=== PATIENT | male | born 1965 | race Caucasian/White ===

== ENCOUNTER 2019-07-11 07:08 | Inpatient (IN) | payer MEDICAID ==
[~2019-07-11] VITALS: Ht 177.8 cm; Wt 118.9 kg
[2019-07-11] MEDS ORDERED: NO HOME MEDS (07:37)
[2019-07-11] MEDS ORDERED: morphine 4 MG/ML inj SYRINge IV ONE (07:45)
[2019-07-11 07:51] LABS: EOSINOPHILS % (AUTO) 0 % (0-6); HEMATOCRIT 41.4 % (42.0-52.0); MONOCYTES # (AUTO) 2.4 X10'3 (0-0.9)
[2019-07-11 07:53] LABS: BASOPHILS # (AUTO) 0.1 X10'3 (0-0.2); BASOPHILS % (AUTO) 0.3 % (0-1); HEMOGLOBIN 14.4 g/dl (14.0-17.9); LYMPHOCYTES % (AUTO) 4.7 % (21-51); MEAN CORPUSCULAR HEMOGLOBIN 30.4 PG (27.0-31.0); MEAN CORPUSCULAR HGB CONC 34.6 g/dL (33.0-36.5); MEAN CORPUSCULAR VOLUME 87.8 FL (78-98); MEAN PLATELET VOLUME 8.2 FL (7.4-10.4); MONOCYTES % (AUTO) 11.7 % (2-12); NEUTROPHILS # (AUTO) 17.4 X10'3 (1.8-7.7); NEUTROPHILS % (AUTO) 83.3 % (42-75); PLATELET COUNT 221 X10'3 (140-440); RED BLOOD COUNT 4.72 X10'6 (4.70-6.10); RED CELL DISTRIBUTION WIDTH 13.5 % (11.5-14.5); WHITE BLOOD COUNT 20.8 X10'3 (4.5-11.0)
[2019-07-11 08:03] LABS: ALANINE AMINOTRANSFERASE 29 U/L (12-78); ALBUMIN 3.1 G/DL (3.4-5.0); ALBUMIN/GLOBULIN RATIO 0.7 (1.1-1.5); ALKALINE PHOSPHATASE 81 IU/L (46-116); ANION GAP 9 (8-16); ASPARTATE AMINO TRANSFERASE 15 U/L (10-37); BILIRUBIN,TOTAL 0.5 MG/DL (0.1-1.0); BLOOD UREA NITROGEN 15 MG/DL (7-18); BUN/CREATININE RATIO 16.1 (5.4-32.0); CALCIUM 8.8 MG/DL (8.5-10.1); CHLORIDE 100 MMOL/L (99-107); CREATININE 0.93 MG/DL (0.60-1.10); GLUCOSE 155 MG/DL (70-104); SODIUM 133 MMOL/L (135-145); TOTAL CARBON DIOXIDE 24.3 MMOL/L (24-32); TOTAL PROTEIN 7.4 G/DL (6.4-8.2); eGFR 85 ML/MIN
[2019-07-11 08:07] LABS: PARTIAL THROMBOPLASTIN TIME 32 SECONDS (22-32)
[2019-07-11 08:19] LABS: TOTAL CELLS COUNTED 100
[2019-07-11 08:20] LABS: PLATELET ESTIMATE NORMAL; TOXIC GRANULATION 1+; TOXIC VACUOLATION 1+
[2019-07-11] MEDS ORDERED: iohexol 350 MG/ML 50ML vial IV ONE (08:21)
[2019-07-11] MEDS ORDERED: iohexol 350MG/ML 100ml bottle IV ONE (08:21)
[2019-07-11 08:40] LABS: TROPONIN I < 0.04 NG/ML (0.0-0.05)
[2019-07-11] MEDS ORDERED: HYDROmorphone 1 mg/ml syringe IV ONE ×2 (08:40→12:30)
[2019-07-11 10:08] LABS: CLARITY,URINE CLEAR (Clear); COLOR,URINE YELLOW (Yellow); GLUCOSE, URINE 100 mg/dl (Neg); KETONES,URINE NEGATIVE (Neg); LEUKOCYTE ESTERASE ,URINE NEGATIVE (Neg); NITRITES, URINE NEGATIVE (Neg); OCCULT BLOOD,URINE MODERATE (Neg); PROTEIN,URINE 100 mg/dl (Neg)
[2019-07-11 10:09] LABS: UA COLLECTION TYPE URINAL
[2019-07-11 10:19] LABS: URINE AMPHETAMINE SCREEN POSITIVE (Neg); URINE BARBITUATE SCREEN NEGATIVE (Neg); URINE BENZODIAZEPINES SCREEN NEGATIVE (Neg); URINE CANNABINOID SCREEN POSITIVE (Neg); URINE COCAINE SCREEN NEGATIVE (Neg); URINE METHADONE SCREEN NEGATIVE (Neg); URINE OPIATE SCREEN POSITIVE (Neg); URINE PHENCYCLIDINE SCREEN NEGATIVE (Neg)
[2019-07-11 10:20] LABS: BACTERIA,URINE FEW /HPF (Neg); HYALINE CASTS 0-3 /LPF (NEGATIVE); MUCUS STRANDS MODERATE /LPF (Neg); SQUAMOUS EPITHELIAL CELL,UR FEW /LPF (FEW); WBC,URINE 0-4 /HPF (0-4)
[2019-07-11] MEDS ORDERED: piperacillin/tazo 3.375gm/50ml 50 ML IV ONE (10:50)
[2019-07-11] MEDS ORDERED: vancomycin/NS 1 GM ADD-VANTAGE 250 ML IV ONE (10:50)
--- NOTE | 2019-07-11 11:12 | NUR ---
ICE CHIPS GIVEN
--- NOTE | 2019-07-11 11:53 | NUR ---
TO MRI, VANCO/IV SALINE LOCKED
--- NOTE | 2019-07-11 12:18 | NUR ---
PT WOULD NOT STAY STILL FOR MRI, R/T PAIN, MD AWARE.
--- NOTE | 2019-07-11 13:03 | NUR ---
CALLED MRI TO CHECK ON WHEN THEY WILL BE READY AND MADE THEM AWARE I HAVE THE PT'S PAIN MEDICATION. LEFT A MESSAGE AND WAITING ON THEIR RESPONSE.
[2019-07-11] MEDS ORDERED: normal saline 1000ml 1,000 ML IV ONE (13:15)
[2019-07-11] MEDS ORDERED: ketamine 10mg/ml 20ml inj IV ONE (13:25)
[2019-07-11] MEDS ORDERED: etomidate 2mg/ml inj. ONE ×2 (14:00→17:00)
--- NOTE | 2019-07-11 14:10 | NUR ---
attempted to call mri again, paged per reza again, no response
--- NOTE | 2019-07-11 15:28 | NUR ---
mri responded, pt to be up for mri soon
[2019-07-11] MEDS ORDERED: potassium Cl 20 mEq SR tablet PO PRN ×2 (15:30)
[2019-07-11] MEDS ORDERED: magnesium 2GM in 50ml NS 50 ML IV PRN (15:30)
[2019-07-11] MEDS ORDERED: magnesium Cl slow-release 64mg tablet PO PRN (15:30)
[2019-07-11] MEDS: normal saline 1000ml 1,000 ML IV SCH (15:30)
[2019-07-11] MEDS ORDERED: acetaminophen 325mg tablet PO PRN ×2 (15:30)
[2019-07-11] MEDS ORDERED: mag hydrox/Alum hydrox/simeth 30ml oral suspension PO PRN (15:30)
[2019-07-11] MEDS ORDERED: magnesium hydroxide 30ml (MOM) UD suspension PO PRN (15:30)
[2019-07-11] MEDS ORDERED: HYDROcodone/acetaminophen 10/325mg tab PO PRN (15:30)
[2019-07-11] MEDS ORDERED: potassium CL 10mEq/100ml bag 100 ML IV PRN ×2 (15:30)
[2019-07-11] MEDS ORDERED: HYDROcodone/acetaminophen 5mg/325mg tablet PO PRN (15:30)
[2019-07-11] MEDS ORDERED: ondansetron/PF 4mg/2ml inj IV PRN (15:30)
[2019-07-11] MEDS ORDERED: magnesium 4gm in 100ml NS 100 ML IV PRN (15:30)
[2019-07-11] MEDS ORDERED: morphine 2 MG/ML inj. syringe IV PRN ×2 (15:30)
[2019-07-11 15:49] LABS: CREATINE KINASE 139 U/L (39-308)
[2019-07-11] MEDS ORDERED: metoprolol tartrate 50mg tablet PO ONE (15:50)
--- NOTE | 2019-07-11 16:07 | NUR ---
TO MRI WITH DAVID Diop
[2019-07-11] MEDS ORDERED: rocuronium 10mg/ml inj IV ONE ×2 (17:00→20:00)
[2019-07-11] MEDS ORDERED: 0.9 % SODIUM CHLORIDE 10 ML VIAL ONE (17:00)
[2019-07-11] MEDS ORDERED: atropine 0.1mg/ml 10ml syringe ONE (17:00)
[2019-07-11] MEDS ORDERED: NORepinephrine bitartrate 8 MG in NS 250 ML BAG (32 mcg/ml) IV ONE (17:00)
--- NOTE | 2019-07-11 17:14 | NUR ---
RECEIVED REPORT FROM ER NURSE LONDON PALMER, BUT PT IS IN MRI AND THEY WILL BRING HIM UP WHEN THEY ARE FINISHED
--- NOTE | 2019-07-11 17:41 | NUR ---
PT CAME TO FLOOR. HE IS IN PAIN, BUT JUST GOT KETAMINE
[2019-07-11 17:42] VITALS: BP 156/100
--- NOTE | 2019-07-11 17:49 | NUR ---
PT CURRENTLY GETTING ECHO
[2019-07-11 20:00] VITALS: BP 151/92
[2019-07-11] MEDS: heparin, porcine 5000 units/ml vial SQ SCH (20:00)
[2019-07-11] MEDS ORDERED: epiNEPHrine 0.1mg/ml 10ml syringe ONE (20:00)
--- NOTE | 2019-07-11 20:45 | NUR ---
Patient had unwitnessed fall in own room. No injuries found. Patient lifted back to bed with Roland. Vitals were 97.8T, 110HR, 140/90BP. Dr. Arias notified
[2019-07-11] MEDS ORDERED: temazepam 15mg capsule PO PRN (21:00)
[2019-07-11] MEDS: metoprolol tartrate 50mg tablet PO SCH (22:05)
[2019-07-12] VITALS (28 sets, daily range): BP systolic 60–133; BP diastolic 29–80
[2019-07-12 00:05] LABS: ABG BASE EXCESS -1.1 mmol/L (-2.0-3.0); ABG HCO3 24.2 mmol/L (22.0-26.0); ABG OXYGEN SATURATION 92.5 % (95-98); ABG PCO2 (T) 47.5 mmHg (35.0-45.0); ABG PH (T) 7.336 (7.350-7.450); ABG PO2 (T) 78.3 mmHg (83-108); FCOHb 0.5 % (0.5-1.5); FLOW 2 L/min; FMetHb 0.2 % (0.3-1.12); FO2Hb 91.9 % (94-100); PATIENT TEMPERATURE 39.5; RESPIRATORY RATE (OBSERVED) 20 b/min; TOTAL HEMOGLOBIN 15.5 G/dl (14.0-17.9)
--- NOTE | 2019-07-12 00:30 | NUR ---
Patient was a Rapid Response and transferred to room 2013. Charge Nurse was transferring patient to bed when patient has a witnessed Respiratory Arrest. Code Blue Called, Patient intubated at 0040. See code Blue notes.
[2019-07-12 00:31] LABS: BASOPHILS # (AUTO) 0.1 X10'3 (0-0.2); BASOPHILS % (AUTO) 0.2 % (0-1); EOSINOPHILS % (AUTO) 0 % (0-6); HEMOGLOBIN 15.4 g/dl (14.0-17.9); LYMPHOCYTES # (AUTO) 0.9 X10'3 (1.1-4.8); LYMPHOCYTES % (AUTO) 3.5 % (21-51); MEAN CORPUSCULAR HEMOGLOBIN 30.1 PG (27.0-31.0); MEAN CORPUSCULAR HGB CONC 34.2 g/dL (33.0-36.5); MEAN PLATELET VOLUME 8.1 FL (7.4-10.4); MONOCYTES # (AUTO) 1.9 X10'3 (0-0.9); MONOCYTES % (AUTO) 7.5 % (2-12); NEUTROPHILS # (AUTO) 22.2 X10'3 (1.8-7.7); NEUTROPHILS % (AUTO) 88.8 % (42-75); PLATELET COUNT 237 X10'3 (140-440); RED BLOOD COUNT 5.11 X10'6 (4.70-6.10); RED CELL DISTRIBUTION WIDTH 13.7 % (11.5-14.5)
[2019-07-12 00:37] LABS: ALANINE AMINOTRANSFERASE 28 U/L (12-78); ALBUMIN/GLOBULIN RATIO 0.6 (1.1-1.5); ALKALINE PHOSPHATASE 89 IU/L (46-116); ANION GAP 12 (8-16); ASPARTATE AMINO TRANSFERASE 17 U/L (10-37); BILIRUBIN,TOTAL 0.7 MG/DL (0.1-1.0); BLOOD UREA NITROGEN 21 MG/DL (7-18); BUN/CREATININE RATIO 18.4 (5.4-32.0); CALCIUM 9.1 MG/DL (8.5-10.1); CHLORIDE 97 MMOL/L (99-107); CREATININE 1.14 MG/DL (0.60-1.10); GLUCOSE 139 MG/DL (70-104); POTASSIUM 4.3 MMOL/L (3.5-5.1); SODIUM 133 MMOL/L (135-145); TOTAL CARBON DIOXIDE 23.8 MMOL/L (24-32); eGFR 67 ML/MIN
[2019-07-12] MEDS ORDERED: hydrocortisone sod succ/PF 100mg/2ml inj. IV ONE (01:00)
[2019-07-12] MEDS ORDERED: acetaminophen 325mg/10.15ml oral unit dose solution PO PRN (01:20)
[2019-07-12 01:21] LABS: ABG BASE EXCESS -7.8 mmol/L (-2.0-3.0); ABG HCO3 21.3 mmol/L (22.0-26.0); ABG OXYGEN SATURATION 94.6 % (95-98); ABG PCO2 (T) 67.9 mmHg (35.0-45.0); ABG PH (T) 7.133 (7.350-7.450); ALLEN'S TEST Positive; FCOHb 0.2 % (0.5-1.5); FMetHb 0.3 % (0.3-1.12); FO2Hb 94.1 % (94-100); MINUTE VOLUME 9 L/min; PATIENT TEMPERATURE 40.3; PEEP 5 cm H2O; RESPIRATORY RATE 18 b/min; RESPIRATORY RATE (OBSERVED) 18 b/min; TIDAL VOLUME 500 mL; TOTAL HEMOGLOBIN 13.9 G/dl (14.0-17.9)
--- NOTE | 2019-07-12 01:30 | NUR ---
Dr Post at bedside to place central line and Artline. Will continue to monitor patient.
[2019-07-12] MEDS ORDERED: DOBUTamine-DoBUTrex 500mg/D5W 250 ML IV ONE (01:47)
[2019-07-12 01:55] LABS: PLATELET ESTIMATE NORMAL; TOTAL CELLS COUNTED 100
[2019-07-12] MEDS: normal saline 1000ml 1,000 ML IV SCH ×2 (02:10→12:15)
[2019-07-12] MEDS: DOBUTamine-DoBUTrex 500mg/D5W 250 ML IV SCH (02:10)
[2019-07-12] MEDS: hydrocortisone sod succ/PF 100mg/2ml inj. IV SCH ×4 (02:12→20:07)
[2019-07-12 02:15] LABS: OXYGEN SATURATION (MIXED VEN) 56.1 % (60-80)
[2019-07-12 02:15] LABS: ABG BASE EXCESS -2.5 mmol/L (-2.0-3.0); ABG HCO3 22.8 mmol/L (22.0-26.0); ABG PCO2 (T) 46.6 mmHg (35.0-45.0); ABG PO2 (T) 102.5 mmHg (83-108); FCOHb 0.1 % (0.5-1.5); FMetHb 0.3 % (0.3-1.12); FO2Hb 95.6 % (94-100); MINUTE VOLUME 13 L/min; PATIENT TEMPERATURE 39.7; PEEP 5 cm H2O; RESPIRATORY RATE 24 b/min; RESPIRATORY RATE (OBSERVED) 24 b/min; TIDAL VOLUME 500 mL; TOTAL HEMOGLOBIN 13.8 G/dl (14.0-17.9)
[2019-07-12] MEDS: midazolam 100mg in NS 100ml 100 ML IV PRN (04:25)
[2019-07-12] MEDS: FENTANYL-0.9 % NACL/PF 100 ML IV PRN ×2 (04:26→17:55)
[2019-07-12] MEDS: NORepinephrine 8mg/ 250ml NS 250 ML IV PRN ×3 (04:36→17:23)
[2019-07-12] MEDS: CefTRIAXone 2gm/D5W 50ml 50 ML IV SCH (07:39)
[2019-07-12] MEDS: K and/or MAG REPLACEMENT MC SCH (08:00)
[2019-07-12] MEDS: lisinopril 10 MG tablet PO SCH (08:00)
[2019-07-12] MEDS: metoprolol tartrate 50mg tablet PO SCH ×2 (08:00→20:00)
[2019-07-12] MEDS: nicotine 14mg patch - 24hr TD SCH (08:11)
[2019-07-12] MEDS: piperacillin/tazo 3.375gm/50ml 50 ML IV SCH ×3 (08:12→23:51)
[2019-07-12] MEDS: heparin, porcine 5000 units/ml vial SQ SCH ×2 (08:12→20:09)
--- NOTE | 2019-07-12 10:02 | NUR ---
Initial: Pt admitted with sepsis and reports of back pain. Pt s/p code blue early this morning now in CICU and intubated. TF recommendations below for if prolonged intubation and to receive nutrition support. Pt with positive tox screen for opioids, cannabinoids and amphetamines and with a hx COPD. Pt currently with a low Pablo of 12, documentation indicates no edema or wounds present. Will continue to follow. Recommendations: 1) If prolonged intubation and to receive nutrition support, recommend continuous TF of Vital High Protein with goal rate of 75 mL/hr 2) If above, prealbumin q /; daily wts 3) Diet advancement to heart healthy as medically indicated following extubation Addendum: 07/12/19 at [address] Amended: Links added.
[2019-07-12] MEDS ORDERED: insulin Lispro (HumaLOG) vial - multi-dose SQ PRN (15:15)
[2019-07-12] MEDS ORDERED: VANCOMYCIN LEVEL IV ONE (19:30)
[2019-07-12] MEDS: lactobacillus rhamnosus 10,000 MMU CELLS/CAPSULE PO SCH (20:07)
[2019-07-12] MEDS ORDERED: ipratropium/albuterol 3ml nebule ONE (20:57)
[2019-07-12] MEDS: ipratropium/albuterol 3ml nebule NEB PRN (20:59)
[2019-07-12] MEDS: insulin glargine (Lantus) pen - multi-dose SQ SCH (22:39)
[2019-07-12 23:25] LABS: ABG BASE EXCESS -2.9 mmol/L (-2.0-3.0); ABG HCO3 22.5 mmol/L (22.0-26.0); ABG OXYGEN SATURATION 93.1 % (95-98); ABG PCO2 (T) 40.6 mmHg (35.0-45.0); ABG PO2 (T) 70.7 mmHg (83-108); FCOHb 0.3 % (0.5-1.5); FMetHb 0.3 % (0.3-1.12); FO2Hb 92.5 % (94-100); MINUTE VOLUME 12 L/min; PATIENT TEMPERATURE 36.6; PEEP 5 cm H2O; RESPIRATORY RATE 24 b/min; RESPIRATORY RATE (OBSERVED) 24 b/min; TIDAL VOLUME 500 mL
--- NOTE | 2019-07-12 23:45 | NUR ---
patient comtinuously drops sats to 86-90 %, sxn for scnat amounts. breath sounds course rhonchi and wheezes, RT treatment was already completed. Keith from RT in to do an ABG - results were status quo - however patient drops sats to 88 % then back up to near 94 %. Patient denies resp distress and doesnt appear to be in distress. CXR completed early - see imaging for results. patient remained 87 % after cxr - FIO2 increased to 50 %. will continue to monitor Addendum: 07/12/19 at 2353 by Paras Palacios RN RT - keith - moved ETT to 24 cm at teeth/25 cm at lip - per the cxr results.
[2019-07-13] VITALS (24 sets, daily range): BP systolic 94–132; BP diastolic 53–75
--- NOTE | 2019-07-13 00:28 | NUR ---
CONCERNED WITH SATS VS INCREASING NEED FOR HIGHER FIO2. PATIENT BARELY MAINTAINING SATS 92 % ON 60 %, CALL TO SALLIE CASIANO NP. MESSAGE LEFT. CALLBACK WITHIN 5 MIN. I UPDATED YOBANI RIZO REGARDING GRAM + COCCI FROM THE CENTRAL LINE DRAWN 8/17 AM. REMINDED YOBANI RIZO OF THE PREVIOUS PERIPHERAL BLOOD DRAW THAT CAME BACK + FRO SAME. HAND THE PHONE TO RT KAVIN SO RT COULD UPDATE SALLIE RE: OXYGENATION ISSUES FURTHER. AT THE END OF THE CALL, RT INCREASED PEEP TO 10. WILL CONTINUE TO [place]
--- NOTE | 2019-07-13 00:46 | NUR ---
AFTER PEEP WAS INCREASED PATIENT ALMOST IMMEDIATELY INCREASED SATS TO 97 %. COMPLETE TURN, BED AND BATH - PATIENT BEGAN TRYING TO TALK OVER ETT. PATIENT NODDED VIGOROUSLY YES TO PAIN. I Addendum: 07/13/19 at 0051 by Paras Palacios RN PREVIOUS NOTE CLOSED UNEXPECTEDLY - I BOLUSED PATIENT WITH 50 UG FENTANYL AND INCREASED GTT TO 150 UG/HR PATIENT APPEARED TO BE IN EXTREME PAIN. SITUATED ON LEFT SIDE WIT PILLOWS UNDER EXTREMITIES. BACK WAS INTACT HOWEVER PATIENT WAS ALREADY ON BACK PRIOR TO THIS TURN - THOUGH HE APPEARS MORE COMFORTABLE WHEN HE IS ON HIS BACK. MADE COMFORTABLE POSSIBLE AND INCREASED THE FENTANYL GTT. I EXPLAINED TO PATIENT THE REASON FOR KEEPING HIM ON ONE HIS SIDE AND LET HIM KNOW I INCREASED GTT AND BOLUSED HIM. WITHIN MINUTES PATIENT CALMS AND APPEARS MORE COMFORTABLE. SLEEPING NOW./SEDATED . ALL PROCEDURES EXPLAINED
[2019-07-13] MEDS: hydrocortisone sod succ/PF 100mg/2ml inj. IV SCH ×4 (02:25→20:01)
[2019-07-13] MEDS: normal saline 1000ml 1,000 ML IV SCH ×3 (02:26→13:31)
[2019-07-13] MEDS: mineral oil/petrolatum ophthal oint EACHEYE SCH ×4 (02:31→19:57)
[2019-07-13] MEDS: ipratropium/albuterol 3ml nebule NEB PRN ×4 (02:44→23:12)
[2019-07-13 03:04] LABS: BASOPHILS % (AUTO) 0.2 % (0-1); EOSINOPHILS % (AUTO) 0 % (0-6); HEMATOCRIT 33.6 % (42.0-52.0); HEMOGLOBIN 11.3 g/dl (14.0-17.9); LYMPHOCYTES # (AUTO) 0.9 X10'3 (1.1-4.8); LYMPHOCYTES % (AUTO) 5.9 % (21-51); MEAN CORPUSCULAR HEMOGLOBIN 29.6 PG (27.0-31.0); MEAN CORPUSCULAR HGB CONC 33.7 g/dL (33.0-36.5); MEAN CORPUSCULAR VOLUME 87.7 FL (78-98); MONOCYTES # (AUTO) 1.3 X10'3 (0-0.9); MONOCYTES % (AUTO) 8.1 % (2-12); NEUTROPHILS # (AUTO) 13.8 X10'3 (1.8-7.7); NEUTROPHILS % (AUTO) 85.8 % (42-75); PLATELET COUNT 180 X10'3 (140-440); RED BLOOD COUNT 3.83 X10'6 (4.70-6.10); RED CELL DISTRIBUTION WIDTH 13.7 % (11.5-14.5)
[2019-07-13 03:25] LABS: ALANINE AMINOTRANSFERASE 35 U/L (12-78); ALBUMIN 1.8 G/DL (3.4-5.0); ALBUMIN/GLOBULIN RATIO 0.4 (1.1-1.5); ALKALINE PHOSPHATASE 63 IU/L (46-116); ANION GAP 10 (8-16); ASPARTATE AMINO TRANSFERASE 60 U/L (10-37); BILIRUBIN,TOTAL 0.5 MG/DL (0.1-1.0); BLOOD UREA NITROGEN 44 MG/DL (7-18); BUN/CREATININE RATIO 27.2 (5.4-32.0); CALCIUM 7.7 MG/DL (8.5-10.1); CHLORIDE 103 MMOL/L (99-107); CREATININE 1.62 MG/DL (0.60-1.10); GLUCOSE 119 MG/DL (70-104); MAGNESIUM 2.5 MG/DL (1.5-2.4); POTASSIUM 3.6 MMOL/L (3.5-5.1); SODIUM 137 MMOL/L (135-145); TOTAL CARBON DIOXIDE 23.7 MMOL/L (24-32); eGFR 45 ML/MIN
[2019-07-13] MEDS: FENTANYL-0.9 % NACL/PF 100 ML IV PRN ×3 (04:07→21:27)
[2019-07-13 05:06] LABS: ABG BASE EXCESS -4.1 mmol/L (-2.0-3.0); ABG HCO3 21.5 mmol/L (22.0-26.0); ABG OXYGEN SATURATION 95.1 % (95-98); ABG PH (T) 7.337 (7.350-7.450); ABG PO2 (T) 81.2 mmHg (83-108); FCOHb 0.3 % (0.5-1.5); FMetHb 0.1 % (0.3-1.12); FO2Hb 94.7 % (94-100); MINUTE VOLUME 12 L/min; PEEP 10 cm H2O; RESPIRATORY RATE 24 b/min; RESPIRATORY RATE (OBSERVED) 24 b/min; TIDAL VOLUME 500 mL; TOTAL HEMOGLOBIN 12.5 G/dl (14.0-17.9)
[2019-07-13] MEDS: VANCOmycin 1250MG/NS 250ml Bag 250 ML IV SCH ×3 (05:45→21:33)
[2019-07-13] MEDS: lactobacillus rhamnosus 10,000 MMU CELLS/CAPSULE PO SCH ×2 (07:25→20:01)
[2019-07-13] MEDS: CefTRIAXone 2gm/D5W 50ml 50 ML IV SCH (07:25)
[2019-07-13] MEDS: heparin, porcine 5000 units/ml vial SQ SCH ×2 (07:26→20:00)
[2019-07-13] MEDS: nicotine 14mg patch - 24hr TD SCH (07:27)
[2019-07-13] MEDS: lisinopril 10 MG tablet PO SCH (08:00)
[2019-07-13] MEDS: metoprolol tartrate 50mg tablet PO SCH (08:00)
[2019-07-13] MEDS: piperacillin/tazo 3.375gm/50ml 50 ML IV SCH (08:30)
[2019-07-13] MEDS: DOBUTamine-DoBUTrex 500mg/D5W 250 ML IV SCH (08:31)
[2019-07-13] MEDS: NORepinephrine 8mg/ 250ml NS 250 ML IV PRN (08:31)
[2019-07-13] MEDS: K and/or MAG REPLACEMENT MC SCH (08:39)
[2019-07-13] MEDS: methylnaltrexone br 12mg/0.6ml inj***SubQ only SQ SCH (10:18)
[2019-07-13] MEDS: metoprolol tartrate 25mg tablet PO SCH ×2 (10:19→20:01)
[2019-07-13] MEDS: ceFAZolin 1GM/D5W- ADD-VANTAGE 50 ML IV SCH ×3 (10:20→20:01)
--- NOTE | 2019-07-13 11:08 | NUR ---
0930- Dr Urena rounds- Decrease lopressor to 25 BID, dc zestril, KUB for abdominal distention, relistor SQ for no BM. MD spoke with mother at bedside, concern is source of positive blood cultures, possible bowel involvement. Nursing continues to titrate levophed down. \ 1000 Levophed at 3, decreased fentanyl to 125. Family at bedside.
--- NOTE | 2019-07-13 11:45 | NUR ---
reassessment: Pt remains intubated w/ NG in place. Abdomen distention noted s/p KUB showing nonspecific bowel distention; started on relistor today per MD w/ no BM yet this admit. TF recs below for nutrition support needs if prolonged intubation. Will continue to monitor. Recommendations: 1) If TF per MD; recommend continuous TF of Vital High Protein with goal rate of 100mL/hr 2) If above, prealbumin q /; daily wts 3) relistor per MD for abdomen distention; no BM yet 4) Diet advancement to heart healthy as medically indicated following extubation Addendum: 07/13/19 at [address] Amended: Links added.
[2019-07-13] MEDS ORDERED: bisacodyl 10mg suppository rectal RC STA (11:56)
--- NOTE | 2019-07-13 13:11 | NUR ---
1300- Rectal suppository given, firm stool present in vault. Levophed remains off with BP at 117/67.
--- NOTE | 2019-07-13 15:20 | NUR ---
1356- Updated Dr Urena on patient stats. wants FIO2 down to 50%. Leave dobutamine at current rate of 5. Patient tolerating levophed off.
--- NOTE | 2019-07-13 18:21 | NUR ---
Problems reprioritized. Patient report given, questions answered & plan of care reviewed with Paras.
[2019-07-13] MEDS: insulin glargine (Lantus) pen - multi-dose SQ SCH (20:28)
[2019-07-13] MEDS: midazolam 100mg in NS 100ml 100 ML IV PRN (21:27)
[2019-07-14] VITALS (27 sets, daily range): BP systolic 78–137; BP diastolic 42–69
[2019-07-14] MEDS: DOBUTamine-DoBUTrex 500mg/D5W 250 ML IV SCH (01:32)
[2019-07-14] MEDS: mineral oil/petrolatum ophthal oint EACHEYE SCH ×4 (02:13→19:49)
[2019-07-14] MEDS: ceFAZolin 1GM/D5W- ADD-VANTAGE 50 ML IV SCH ×2 (02:14→07:27)
[2019-07-14] MEDS: hydrocortisone sod succ/PF 100mg/2ml inj. IV SCH ×4 (02:14→19:49)
[2019-07-14 02:39] LABS: ALANINE AMINOTRANSFERASE 39 U/L (12-78); ALBUMIN 1.5 G/DL (3.4-5.0); ALBUMIN/GLOBULIN RATIO 0.4 (1.1-1.5); ALKALINE PHOSPHATASE 79 IU/L (46-116); ANION GAP 6 (8-16); ASPARTATE AMINO TRANSFERASE 56 U/L (10-37); BILIRUBIN,TOTAL 0.4 MG/DL (0.1-1.0); BLOOD UREA NITROGEN 39 MG/DL (7-18); BUN/CREATININE RATIO 31.2 (5.4-32.0); CALCIUM 7.5 MG/DL (8.5-10.1); CHLORIDE 108 MMOL/L (99-107); CREATININE 1.25 MG/DL (0.60-1.10); GLUCOSE 125 MG/DL (70-104); POTASSIUM 3.9 MMOL/L (3.5-5.1); SODIUM 140 MMOL/L (135-145); TOTAL CARBON DIOXIDE 26.3 MMOL/L (24-32); TOTAL PROTEIN 5.7 G/DL (6.4-8.2); eGFR 60 ML/MIN
[2019-07-14] MEDS: ipratropium/albuterol 3ml nebule NEB PRN ×4 (02:54→17:01)
[2019-07-14 03:06] LABS: ABG BASE EXCESS 0.3 mmol/L (-2.0-3.0); ABG HCO3 25.2 mmol/L (22.0-26.0); ABG OXYGEN SATURATION 94.2 % (95-98); ABG PCO2 (T) 41.5 mmHg (35.0-45.0); ABG PO2 (T) 70.8 mmHg (83-108); ALLEN'S TEST Positive; FCOHb 0.3 % (0.5-1.5); FMetHb 0.1 % (0.3-1.12); FO2Hb 93.8 % (94-100); MINUTE VOLUME 13 L/min; PATIENT TEMPERATURE 36.9; PEEP 10 cm H2O; RESPIRATORY RATE 24 b/min; RESPIRATORY RATE (OBSERVED) 24 b/min; TIDAL VOLUME 500 mL
[2019-07-14 03:19] LABS: BASOPHILS % (AUTO) 0.1 % (0-1); EOSINOPHILS % (AUTO) 0 % (0-6); HEMATOCRIT 30.9 % (42.0-52.0); HEMOGLOBIN 10.2 g/dl (14.0-17.9); LYMPHOCYTES # (AUTO) 0.8 X10'3 (1.1-4.8); LYMPHOCYTES % (AUTO) 6.2 % (21-51); MEAN CORPUSCULAR HEMOGLOBIN 29.3 PG (27.0-31.0); MEAN CORPUSCULAR VOLUME 88.8 FL (78-98); MEAN PLATELET VOLUME 8.4 FL (7.4-10.4); MONOCYTES # (AUTO) 0.9 X10'3 (0-0.9); MONOCYTES % (AUTO) 6.8 % (2-12); NEUTROPHILS # (AUTO) 11.6 X10'3 (1.8-7.7); NEUTROPHILS % (AUTO) 86.9 % (42-75); PLATELET COUNT 183 X10'3 (140-440); RED BLOOD COUNT 3.47 X10'6 (4.70-6.10); RED CELL DISTRIBUTION WIDTH 14.3 % (11.5-14.5); WHITE BLOOD COUNT 13.3 X10'3 (4.5-11.0)
[2019-07-14] MEDS ORDERED: VANCOMYCIN LEVEL IV ONE (05:30)
[2019-07-14] MEDS: normal saline 1000ml 1,000 ML IV SCH ×2 (05:47→09:45)
[2019-07-14] MEDS: VANCOmycin 1250MG/NS 250ml Bag 250 ML IV SCH (05:47)
--- NOTE | 2019-07-14 06:25 | NUR ---
Patient in room CICU 2013. I have received report from Paras and had the opportunity to ask questions and assume patient care.
--- NOTE | 2019-07-14 06:28 | NUR ---
0630- Vanco trough 21.6, reported to pharmacy. Advised to let vanco that is hanging continue to adminster.
[2019-07-14] MEDS: FENTANYL-0.9 % NACL/PF 100 ML IV PRN ×2 (07:25→17:56)
[2019-07-14] MEDS: heparin, porcine 5000 units/ml vial SQ SCH ×2 (07:26→19:50)
[2019-07-14] MEDS: nicotine 14mg patch - 24hr TD SCH (07:26)
[2019-07-14] MEDS: lactobacillus rhamnosus 10,000 MMU CELLS/CAPSULE PO SCH ×2 (07:26→19:49)
[2019-07-14] MEDS: metoprolol tartrate 25mg tablet PO SCH ×2 (07:27→19:50)
[2019-07-14] MEDS: K and/or MAG REPLACEMENT MC SCH (08:00)
--- NOTE | 2019-07-14 08:06 | NUR ---
0630 Decreased fentanyl to 75mcg. 0730- Pt AM care delivered. Patient can shrug shoulders, unable to lift arms, move hands or lower extremities. Can feel me touch down to ankles, no sensation at feet. grimacing in pain, able to relay that pain is in his back. Patient desating after activity, patient feels SOB. Suctioned for scant amount clear sputum. 100% FIO2 to recover patient. RT here placed on 55% FIO2 eventually up to 60% FIO2. Will relay in rounds. link PO2 on ABG was 70.8 down from 81.2 yesterday. AM xray worse than the 07/12 chest xray. Abdomen still distended and a little less firm. 0800- Resting comfortably now, FIO2 at 60% , SpO2 96%.
[2019-07-14] MEDS ORDERED: pneumococcal 23-VAL P-sac vacc 25 mcg/0.5ml vial IMVAC ONE (09:55)
[2019-07-14 11:46] LABS: OXYGEN SATURATION (MIXED VEN) 70.5 % (60-80); PO2 MIXED VENOUS (TEMP COR) 39.4 mmHg (35-46)
[2019-07-14] MEDS ORDERED: etomidate 2mg/ml inj. IV ONE (12:00)
--- NOTE | 2019-07-14 12:36 | NUR ---
07/14 1215 PT SELF EXTUBATED, DESAT TO 82%, DR CRAVEN RE INTUBATED, 8.0 TUBE @ 24 TEETH. NO COMPLICATIONS. Addendum: 07/14/19 at 1240 by Galina Wooten RT Amended: Links added.
--- NOTE | 2019-07-14 12:38 | NUR ---
Tube feeding consult. Patient is intubated and sedated. Per MD, ok to start tube feeding, recommendations are below. Per MD note no signs of ileus, receiving relistor. Will continue to follow. Recommendations: 1) Recommend continuous TF of Vital High Protein with goal rate of 100mL/hr, will provide total volume of 2400 ml, 2400 cals, 2016 ml water, and 210 g protein. 2) additional water flush 200 ml q 4 hours; prealbumin q /; daily wts 3) Continue gut motility stimulator 4) Diet advancement to heart healthy as medically indicated when extubated Addendum: 07/14/19 at [address] Amended: Links added.
--- NOTE | 2019-07-14 12:40 | NUR ---
1140- alerted nursing Patient chewing on ET tube, patient saying help. ET tube dislodged. Unable to maintain self ventilation. Dr Shankar notified. Sp O2 down to the low 80's, BP 90/40's. 1200- 20 of etomidate given IV, Dr Shankar inserted ET size 8/24. Oxygenating well on previous vent settings. Chest xray confirms proper ETT placement. Family educated on events.
[2019-07-14] MEDS: famotidine/PF 10 mg/ml inj IV SCH ×2 (13:11→19:49)
[2019-07-14 14:19] LABS: HIV ANTIBODY 1&2 RAPID NON-REACTIVE (Neg)
--- NOTE | 2019-07-14 15:16 | NUR ---
1500- Placed anchorfast with RT. tube 24 at the teeth. Family notified I would be shaving his cheeks to place the anchorfast. Discoloration noted at right corner of mouth. Photo taken and placed in chart.
[2019-07-14] MEDS: vancomycin/NS 1 GM ADD-VANTAGE 250 ML IV SCH ×2 (15:42→22:24)
[2019-07-14] MEDS ORDERED: normal saline 1000ml 1,000 ML IV ONE (16:25)
--- NOTE | 2019-07-14 16:32 | NUR ---
1615- MAP < 60, urine output <30 for 3 hours, CI at 2.1. Informed Dr Shankar. Ordered 1 lt NS bolus.
[2019-07-14] MEDS: NORepinephrine 8mg/ 250ml NS 250 ML IV PRN (19:47)
[2019-07-14] MEDS ORDERED: famotidine/PF 10 mg/ml inj IV SCH (20:00)
[2019-07-14] MEDS: insulin regular, human vial - multi-dose SQ PRN (20:25)
[2019-07-14] MEDS: insulin glargine (Lantus) pen - multi-dose SQ SCH (20:26)
[2019-07-15] VITALS (23 sets, daily range): BP systolic 104–136; BP diastolic 52–75
[2019-07-15] MEDS: FENTANYL-0.9 % NACL/PF 100 ML IV PRN ×3 (02:28→21:06)
[2019-07-15] MEDS: mineral oil/petrolatum ophthal oint EACHEYE SCH ×4 (02:28→19:43)
[2019-07-15] MEDS: normal saline 1000ml 1,000 ML IV SCH ×3 (02:29→19:27)
[2019-07-15] MEDS: hydrocortisone sod succ/PF 100mg/2ml inj. IV SCH ×4 (02:29→19:43)
[2019-07-15 03:04] LABS: BASOPHILS % (AUTO) 0.1 % (0-1); EOSINOPHILS % (AUTO) 0 % (0-6); HEMATOCRIT 29.9 % (42.0-52.0); LYMPHOCYTES # (AUTO) 0.9 X10'3 (1.1-4.8); LYMPHOCYTES % (AUTO) 5.6 % (21-51); MEAN CORPUSCULAR HEMOGLOBIN 29.9 PG (27.0-31.0); MEAN CORPUSCULAR HGB CONC 33.3 g/dL (33.0-36.5); MEAN PLATELET VOLUME 8.4 FL (7.4-10.4); MONOCYTES # (AUTO) 0.9 X10'3 (0-0.9); NEUTROPHILS # (AUTO) 13.5 X10'3 (1.8-7.7); NEUTROPHILS % (AUTO) 88.3 % (42-75); PLATELET COUNT 221 X10'3 (140-440); RED BLOOD COUNT 3.33 X10'6 (4.70-6.10); RED CELL DISTRIBUTION WIDTH 14.5 % (11.5-14.5); WHITE BLOOD COUNT 15.3 X10'3 (4.5-11.0)
[2019-07-15 03:23] LABS: ALANINE AMINOTRANSFERASE 61 U/L (12-78); ALBUMIN 1.5 G/DL (3.4-5.0); ALBUMIN/GLOBULIN RATIO 0.4 (1.1-1.5); ALKALINE PHOSPHATASE 112 IU/L (46-116); ANION GAP 6 (8-16); ASPARTATE AMINO TRANSFERASE 75 U/L (10-37); BILIRUBIN,TOTAL 0.7 MG/DL (0.1-1.0); BLOOD UREA NITROGEN 50 MG/DL (7-18); BUN/CREATININE RATIO 41.3 (5.4-32.0); CALCIUM 7.5 MG/DL (8.5-10.1); CHLORIDE 112 MMOL/L (99-107); CREATININE 1.21 MG/DL (0.60-1.10); GLUCOSE 132 MG/DL (70-104); MAGNESIUM 3.3 MG/DL (1.5-2.4); POTASSIUM 4.8 MMOL/L (3.5-5.1); SODIUM 143 MMOL/L (135-145); TOTAL CARBON DIOXIDE 25.3 MMOL/L (24-32); TOTAL PROTEIN 5.6 G/DL (6.4-8.2); eGFR 62 ML/MIN
[2019-07-15 05:16] LABS: ABG BASE EXCESS -2.6 mmol/L (-2.0-3.0); ABG HCO3 23.5 mmol/L (22.0-26.0); ABG OXYGEN SATURATION 98.1 % (95-98); ABG PCO2 (T) 46.7 mmHg (35.0-45.0); ABG PH (T) 7.321 (7.350-7.450); ABG PO2 (T) 119.7 mmHg (83-108); FCOHb 0.3 % (0.5-1.5); FMetHb 0.1 % (0.3-1.12); FO2Hb 97.7 % (94-100); MINUTE VOLUME 9 L/min; PATIENT TEMPERATURE 37.4; PEEP 10 cm H2O; RESPIRATORY RATE 24 b/min; RESPIRATORY RATE (OBSERVED) 24 b/min; TIDAL VOLUME 500 mL; TOTAL HEMOGLOBIN 11.3 G/dl (14.0-17.9)
[2019-07-15] MEDS: vancomycin/NS 1 GM ADD-VANTAGE 250 ML IV SCH ×2 (05:46→14:06)
[2019-07-15] MEDS: K and/or MAG REPLACEMENT MC SCH (08:00)
[2019-07-15] MEDS: metoprolol tartrate 25mg tablet PO SCH ×2 (08:00→20:00)
[2019-07-15] MEDS: lactobacillus rhamnosus 10,000 MMU CELLS/CAPSULE PO SCH ×2 (08:14→19:43)
[2019-07-15] MEDS: methylnaltrexone br 12mg/0.6ml inj***SubQ only SQ SCH (08:15)
[2019-07-15] MEDS: nicotine 14mg patch - 24hr TD SCH (08:15)
[2019-07-15] MEDS: famotidine/PF 10 mg/ml inj IV SCH ×2 (08:15→19:43)
[2019-07-15] MEDS: heparin, porcine 5000 units/ml vial SQ SCH ×2 (08:16→19:45)
[2019-07-15] MEDS: insulin regular, human vial - multi-dose SQ PRN ×3 (08:34→20:14)
[2019-07-15] MEDS: DOBUTamine-DoBUTrex 500mg/D5W 250 ML IV SCH (09:36)
[2019-07-15] MEDS ORDERED: pneumococcal 23-VAL P-sac vacc 25 mcg/0.5ml vial IMVAC ONE (10:00)
[2019-07-15] MEDS ORDERED: TETanus/Pertussis (Acell)/Diphther VAC/PF (Tdap-Adult) 0.5ml syringe IMVAC ONE (10:35)
[2019-07-15] MEDS ORDERED: VANCOMYCIN LEVEL IV ONE (13:30)
--- NOTE | 2019-07-15 18:15 | NUR ---
Patient in room ICU 2044. I have received report from Tawny HERNANDEZ and had the opportunity to ask questions and assume patient care.
--- NOTE | 2019-07-15 19:00 | NUR ---
While providing oral care patient's heart rate dropped down into the 40's but quickly came back up. Patient had been biting on tube and attempting to move ETT with tongue. Approx 15 min later while laying patient down to reposition, patients heart rate dropped to 20 but sustained for a short period of time. Code Blue Called. Respiratory at Bedside See татьяна Emmanuel notes.
[2019-07-15] MEDS ORDERED: propofol 1000mg/100ml bottle 100 ML IV ONE (19:14)
[2019-07-15] MEDS: midazolam 100mg in NS 100ml 100 ML IV PRN (19:23)
[2019-07-15] MEDS: ipratropium/albuterol 3ml nebule NEB PRN ×2 (19:30→22:48)
--- NOTE | 2019-07-15 19:39 | NUR ---
CALLED TO PT ROOM DUE TO IMPENDING CODE DUE TO VAGAL, PT HAD PUSHED ETT OUT WITH TOUNGE TO THE SIDE OF MOUTH TO THE POINT OF CREATING A LARGE AIR LEAK DUE TO DISPLACED ETT, PT WAS PARALYZED AND ETT ADVANCED, TUBE CHRISTENSEN REPLACED WITH COMFIT WITH BITE BLOCK TO MINIMIZE PT'S ABILITY TO MOVE TUBE, TUBE PLACEMENT VERIFIED VIA MIST IN TUBING AND END TIDAL CO2, THEN VERIFIED PLACEMENT VIA XRAY, SUCTIONED OUT LARGE AMOUNT OF SPUTUM POST EVENT.
[2019-07-15] MEDS: acetaminophen 325mg/10.15ml oral unit dose solution PO PRN (19:43)
[2019-07-15] MEDS: insulin glargine (Lantus) pen - multi-dose SQ SCH (20:17)
[2019-07-15] MEDS ORDERED: atropine 0.1mg/ml 10ml syringe ONE ×2 (20:30→22:35)
[2019-07-15] MEDS ORDERED: flumazenil 0.1 mg/ml inj. IV ONE (20:30)
[2019-07-15] MEDS: VANCOMYCIN 750MG IV in NS 250 ML IV SCH (22:07)
--- NOTE | 2019-07-15 22:15 | NUR ---
bathed patient and provided oral care. During oral care, patients heart rate decreased down to the 40's but quickly came up. Proceeded to bath patient and turn, while turning patient the heart rate dropped down into the 30's and sustained. Atropine given and heart rate went up into the 190's with a blood pressure of 230/100. Patient continues to vagal when given any care. Jose Enrique Wells contacted and updated on current situation. New orders received. Will continue to monitor
[2019-07-15] MEDS ORDERED: atropine 0.1mg/ml 10ml syringe IV ONE (22:45)
[2019-07-15] MEDS: DOPamine 400mg/D5W 250ml 250 ML IV PRN (22:51)
[2019-07-15 23:00] LABS: ABG BASE EXCESS -5.6 mmol/L (-2.0-3.0); ABG HCO3 20.4 mmol/L (22.0-26.0); ABG OXYGEN SATURATION 88.6 % (95-98); ABG PCO2 (T) 44.4 mmHg (35.0-45.0); ABG PH (T) 7.287 (7.350-7.450); ABG PO2 (T) 66.6 mmHg (83-108); FCOHb 0.3 % (0.5-1.5); FMetHb 0.2 % (0.3-1.12); FO2Hb 88.2 % (94-100); MINUTE VOLUME 14 L/min; PATIENT TEMPERATURE 38.1; PEEP 10 cm H2O; RESPIRATORY RATE 24 b/min; RESPIRATORY RATE (OBSERVED) 24 b/min; TIDAL VOLUME 525 mL; TOTAL HEMOGLOBIN 11.5 G/dl (14.0-17.9)
[2019-07-16] VITALS (24 sets, daily range): BP systolic 99–168; BP diastolic 45–77
[2019-07-16] MEDS ORDERED: atropine 1 MG/1 ML vial IV PRN (00:45)
--- NOTE | 2019-07-16 01:10 | NUR ---
Turned patient with pillows. After patient was positioned on side, patients heart rate dropped down to 20 BPM. 1mg Atropine given per MD order, patients heart rate returned to baseline. Notified Jose Enrique Wells NP. No new orders at this time. Will continue to monitor closely.
[2019-07-16] MEDS: atropine 0.1mg/ml 10ml syringe IV PRN ×4 (01:23→12:07)
[2019-07-16] MEDS: mineral oil/petrolatum ophthal oint EACHEYE SCH ×4 (01:24→20:51)
[2019-07-16] MEDS: FENTANYL-0.9 % NACL/PF 100 ML IV PRN ×5 (01:24→22:09)
[2019-07-16] MEDS: hydrocortisone sod succ/PF 100mg/2ml inj. IV SCH ×4 (01:25→20:51)
[2019-07-16] MEDS: insulin regular, human vial - multi-dose SQ PRN ×4 (02:00→21:00)
[2019-07-16 02:02] LABS: BASOPHILS % (AUTO) 0.2 % (0-1); EOSINOPHILS % (AUTO) 0 % (0-6); HEMATOCRIT 33.2 % (42.0-52.0); HEMOGLOBIN 10.9 g/dl (14.0-17.9); LYMPHOCYTES # (AUTO) 1.2 X10'3 (1.1-4.8); LYMPHOCYTES % (AUTO) 6.8 % (21-51); MEAN CORPUSCULAR HEMOGLOBIN 29.3 PG (27.0-31.0); MEAN CORPUSCULAR HGB CONC 32.7 g/dL (33.0-36.5); MEAN CORPUSCULAR VOLUME 89.6 FL (78-98); MEAN PLATELET VOLUME 7.8 FL (7.4-10.4); MONOCYTES # (AUTO) 1.5 X10'3 (0-0.9); MONOCYTES % (AUTO) 8.2 % (2-12); NEUTROPHILS # (AUTO) 15.4 X10'3 (1.8-7.7); NEUTROPHILS % (AUTO) 84.8 % (42-75); PLATELET COUNT 236 X10'3 (140-440); RED BLOOD COUNT 3.71 X10'6 (4.70-6.10); RED CELL DISTRIBUTION WIDTH 14.6 % (11.5-14.5); WHITE BLOOD COUNT 18.2 X10'3 (4.5-11.0)
[2019-07-16 02:10] LABS: ALANINE AMINOTRANSFERASE 384 U/L (12-78); ALBUMIN 1.6 G/DL (3.4-5.0); ALBUMIN/GLOBULIN RATIO 0.4 (1.1-1.5); ALKALINE PHOSPHATASE 222 IU/L (46-116); ANION GAP 8 (8-16); ASPARTATE AMINO TRANSFERASE 394 U/L (10-37); BILIRUBIN,TOTAL 1.1 MG/DL (0.1-1.0); BLOOD UREA NITROGEN 75 MG/DL (7-18); BUN/CREATININE RATIO 42.1 (5.4-32.0); CALCIUM 7.6 MG/DL (8.5-10.1); CHLORIDE 114 MMOL/L (99-107); CREATININE 1.78 MG/DL (0.60-1.10); GLUCOSE 182 MG/DL (70-104); MAGNESIUM 3.6 MG/DL (1.5-2.4); SODIUM 144 MMOL/L (135-145); TOTAL CARBON DIOXIDE 22.4 MMOL/L (24-32); TOTAL PROTEIN 5.7 G/DL (6.4-8.2); eGFR 40 ML/MIN
[2019-07-16 03:17] LABS: BANDS% (MANUAL) 10 % (0-10); LYMPHOCYTES % (MANUAL) 12 % (21-51); MONOCYTES % (MANUAL) 8 % (2-12); NEUTROPHILS % (MANUAL) 70 % (42-75); TOTAL CELLS COUNTED 100
[2019-07-16 03:18] LABS: PLATELET ESTIMATE NORMAL
[2019-07-16] MEDS: ipratropium/albuterol 3ml nebule NEB PRN (03:28)
[2019-07-16 03:45] LABS: ABG BASE EXCESS -3.9 mmol/L (-2.0-3.0); ABG HCO3 22.5 mmol/L (22.0-26.0); ABG OXYGEN SATURATION 93.2 % (95-98); ABG PCO2 (T) 47.5 mmHg (35.0-45.0); ABG PH (T) 7.296 (7.350-7.450); ABG PO2 (T) 74.9 mmHg (83-108); FCOHb 0.3 % (0.5-1.5); FMetHb 0.1 % (0.3-1.12); FO2Hb 92.8 % (94-100); MINUTE VOLUME 14 L/min; PATIENT TEMPERATURE 37.5; PEEP 10 cm H2O; RESPIRATORY RATE 24 b/min; RESPIRATORY RATE (OBSERVED) 24 b/min; TIDAL VOLUME 525 mL; TOTAL HEMOGLOBIN 12.3 G/dl (14.0-17.9)
[2019-07-16] MEDS: normal saline 1000ml 1,000 ML IV SCH ×3 (05:27→21:11)
--- NOTE | 2019-07-16 05:32 | NUR ---
put patients head up for chest xray. Patients heart dropped to 24 BPM at one point going asystole. Atropine given, external pads attached and patient connected to external pacer.
[2019-07-16] MEDS: midazolam 100mg in NS 100ml 100 ML IV PRN ×2 (05:46→11:38)
[2019-07-16] MEDS: VANCOMYCIN 750MG IV in NS 250 ML IV SCH ×2 (06:05→14:18)
--- NOTE | 2019-07-16 07:45 | NUR ---
While turning pt toward his (R) side pt bradyed to the 40's. External pacer was firing. 1 amp atropine given. Chest shaved & pads replaced. HR returned to 70-80's.
[2019-07-16] MEDS: metoprolol tartrate 25mg tablet PO SCH (08:00)
[2019-07-16] MEDS: famotidine/PF 10 mg/ml inj IV SCH ×2 (08:00→20:51)
[2019-07-16] MEDS: K and/or MAG REPLACEMENT MC SCH (08:00)
[2019-07-16 08:20] LABS: HBSAG SCREEN Negative (Negative); HEP A AB, IGM Negative (Negative); HEP B CORE AB, IGM Negative (Negative); HEPATITIS C ANTIBODY <0.1 s/co ratio (0.0-0.9)
[2019-07-16] MEDS: heparin, porcine 5000 units/ml vial SQ SCH ×2 (08:21→20:51)
[2019-07-16] MEDS: nicotine 14mg patch - 24hr TD SCH (08:21)
[2019-07-16] MEDS: lactobacillus rhamnosus 10,000 MMU CELLS/CAPSULE PO SCH ×2 (08:21→20:51)
[2019-07-16] MEDS: DOPamine 400mg/D5W 250ml 250 ML IV PRN (10:36)
--- NOTE | 2019-07-16 11:55 | NUR ---
Pulse started to drop. Got as low as 41 with B/P of 97/43. Md ordered 0.4 Atropine now. B/P & HR returned to base line. No nursing care was happening at time of event.
[2019-07-16 12:04] LABS: CLARITY,URINE CLOUDY (Clear); COLOR,URINE YELLOW (Yellow); GLUCOSE, URINE 100 mg/dl (Neg); KETONES,URINE NEGATIVE (Neg); LEUKOCYTE ESTERASE ,URINE NEGATIVE (Neg); NITRITES, URINE NEGATIVE (Neg); OCCULT BLOOD,URINE MODERATE (Neg); PROTEIN,URINE TRACE mg/dl (Neg)
[2019-07-16 12:12] LABS: UA COLLECTION TYPE NON-SPECIFIED
[2019-07-16 12:15] LABS: HYALINE CASTS 0-3 /LPF (NEGATIVE)
[2019-07-16 12:16] LABS: SODIUM,URINE RANDOM < 15 MEQ/L
[2019-07-16 12:17] LABS: BACTERIA,URINE 1+ /HPF (Neg)
[2019-07-16 12:18] LABS: SQUAMOUS EPITHELIAL CELL,UR FEW /LPF (FEW)
[2019-07-16 13:24] LABS: UA EOSINOPHILS NO EOS /HPF
--- NOTE | 2019-07-16 15:51 | NUR ---
Pt readied for Trans Venous Pacer placement. Consent obtained by mother. Pt placed in supine position, HR & B/P started to drop. Dr Shankar ordered 1/2 amp epi to be given @ 1507. HR & B/P returned to normal. @ 1521 vitals started to drop again, 0.1 amp epi given per MD. Vitals stabilized. Pacer placement validated by pacer spikes on EKG. Pacer wire at 30cm. Site dressed & external wires taped to prevent dislodging.
[2019-07-16] MEDS: NORepinephrine 8mg/ 250ml NS 250 ML IV PRN (16:52)
[2019-07-16] MEDS: acetaminophen 325mg/10.15ml oral unit dose solution PO PRN (18:07)
--- NOTE | 2019-07-16 18:30 | NUR ---
Patient in room ICU 2044. I have received report from Tawny HERNANDEZ and had the opportunity to ask questions and assume patient care.
--- NOTE | 2019-07-16 19:34 | NUR ---
Problems reprioritized. Patient report given, questions answered & plan of care reviewed with Nadia HERNANDEZ.
[2019-07-16] MEDS: insulin glargine (Lantus) pen - multi-dose SQ SCH (21:03)
[2019-07-17] VITALS (24 sets, daily range): BP systolic 121–134; BP diastolic 58–67
[2019-07-17] MEDS ORDERED: VANCOMYCIN LEVEL IV ONE (01:30)
[2019-07-17] MEDS: VANCOMYCIN 750MG IV in NS 250 ML IV SCH ×4 (02:00→19:57)
[2019-07-17] MEDS: hydrocortisone sod succ/PF 100mg/2ml inj. IV SCH ×4 (02:20→19:58)
[2019-07-17] MEDS: mineral oil/petrolatum ophthal oint EACHEYE SCH ×4 (02:20→19:57)
[2019-07-17 02:22] LABS: BASOPHILS % (AUTO) 0.1 % (0-1); EOSINOPHILS % (AUTO) 0.1 % (0-6); HEMATOCRIT 30.6 % (42.0-52.0); LYMPHOCYTES # (AUTO) 1.2 X10'3 (1.1-4.8); LYMPHOCYTES % (AUTO) 8.9 % (21-51); MEAN CORPUSCULAR HEMOGLOBIN 29.8 PG (27.0-31.0); MEAN CORPUSCULAR HGB CONC 32.6 g/dL (33.0-36.5); MEAN CORPUSCULAR VOLUME 91.3 FL (78-98); MEAN PLATELET VOLUME 8.5 FL (7.4-10.4); MONOCYTES # (AUTO) 1.4 X10'3 (0-0.9); MONOCYTES % (AUTO) 10.2 % (2-12); NEUTROPHILS % (AUTO) 80.7 % (42-75); PLATELET COUNT 200 X10'3 (140-440); RED BLOOD COUNT 3.35 X10'6 (4.70-6.10); RED CELL DISTRIBUTION WIDTH 15.4 % (11.5-14.5); WHITE BLOOD COUNT 13.6 X10'3 (4.5-11.0)
[2019-07-17] MEDS: insulin regular, human vial - multi-dose SQ PRN ×2 (02:32→07:57)
[2019-07-17] MEDS: midazolam 100mg in NS 100ml 100 ML IV PRN ×2 (02:33→02:38)
[2019-07-17 02:38] LABS: ALANINE AMINOTRANSFERASE 369 U/L (12-78); ALBUMIN 1.4 G/DL (3.4-5.0); ALBUMIN/GLOBULIN RATIO 0.4 (1.1-1.5); ANION GAP 8 (8-16); ASPARTATE AMINO TRANSFERASE 255 U/L (10-37); BILIRUBIN,TOTAL 0.6 MG/DL (0.1-1.0); BLOOD UREA NITROGEN 75 MG/DL (7-18); BUN/CREATININE RATIO 45.2 (5.4-32.0); CALCIUM 7.4 MG/DL (8.5-10.1); CHLORIDE 121 MMOL/L (99-107); CREATININE 1.66 MG/DL (0.60-1.10); GLUCOSE 215 MG/DL (70-104); POTASSIUM 4.7 MMOL/L (3.5-5.1); SODIUM 152 MMOL/L (135-145); TOTAL CARBON DIOXIDE 22.9 MMOL/L (24-32); TOTAL PROTEIN 5.1 G/DL (6.4-8.2); eGFR 43 ML/MIN
[2019-07-17 02:41] LABS: MAGNESIUM 3.2 MG/DL (1.5-2.4); PHOSPHORUS 3.3 MG/DL (2.3-4.5)
[2019-07-17 02:43] LABS: ALKALINE PHOSPHATASE 159 IU/L (46-116)
[2019-07-17 02:44] LABS: VANCOMYCIN,TROUGH 20.1 UG/ML (6.0-14.0)
[2019-07-17 03:47] LABS: TOTAL CELLS COUNTED 100
[2019-07-17 03:49] LABS: PLATELET ESTIMATE NORMAL; SCHISTOCYTES FEW
[2019-07-17 04:01] LABS: ABG BASE EXCESS -3.5 mmol/L (-2.0-3.0); ABG HCO3 22.6 mmol/L (22.0-26.0); ABG OXYGEN SATURATION 95.8 % (95-98); ABG PCO2 (T) 43.9 mmHg (35.0-45.0); ABG PH (T) 7.326 (7.350-7.450); ABG PO2 (T) 83.4 mmHg (83-108); FCOHb 0.3 % (0.5-1.5); FMetHb 0.3 % (0.3-1.12); FO2Hb 95.2 % (94-100); PATIENT TEMPERATURE 36.4; PEEP 10 cm H2O; RESPIRATORY RATE 24 b/min; RESPIRATORY RATE (OBSERVED) 24 b/min; TIDAL VOLUME 525 mL; TOTAL HEMOGLOBIN 10.9 G/dl (14.0-17.9)
[2019-07-17] MEDS: FENTANYL-0.9 % NACL/PF 100 ML IV PRN ×3 (06:08→18:18)
[2019-07-17] MEDS: famotidine/PF 10 mg/ml inj IV SCH ×2 (07:51→19:57)
[2019-07-17] MEDS: heparin, porcine 5000 units/ml vial SQ SCH ×2 (07:51→19:59)
[2019-07-17] MEDS: lactobacillus rhamnosus 10,000 MMU CELLS/CAPSULE PO SCH ×2 (07:52→19:58)
[2019-07-17] MEDS: methylnaltrexone br 12mg/0.6ml inj***SubQ only SQ SCH (07:52)
[2019-07-17] MEDS: K and/or MAG REPLACEMENT MC SCH (08:00)
[2019-07-17] MEDS: nicotine 14mg patch - 24hr TD SCH (08:02)
--- NOTE | 2019-07-17 11:22 | NUR ---
reassessment: Pt tolerating TF at goal. [facility] 07/14. Na 152 receiving 200ml Q4 water flush but also NS. Pt s/p temporary transvenous pacemaker. [facility] 07/14. Will continue to monitor. Recommendations: 1) Recommend continuous TF of Vital High Protein with goal rate of 100mL/hr, will provide total volume of 2400 ml, 2400 cals, 2016 ml water, and 210 g protein. 2) additional water flush 200 ml q 4 hours; prealbumin q /; daily wts 3) Continue gut motility stimulator 4) Diet advancement to heart healthy as medically indicated when extubated Addendum: 07/17/19 at [address] Amended: Links added.
[2019-07-17] MEDS: normal saline 1000ml 1,000 ML IV SCH ×2 (11:46→21:31)
--- NOTE | 2019-07-17 12:45 | NUR ---
TF stopped at [address] Mendiola in preparation for ENEIDA later today.
[2019-07-17] MEDS ORDERED: mag hydrox/Alum hydrox/simeth 30ml oral suspension NG PRN (15:06)
[2019-07-17] MEDS ORDERED: acetaminophen 325mg/10.15ml oral unit dose solution NG PRN ×2 (15:06)
[2019-07-17] MEDS ORDERED: magnesium hydroxide 30ml (MOM) UD suspension NG PRN (15:07)
--- NOTE | 2019-07-17 18:35 | NUR ---
Patient in room ICU 2044. I have received report from Tripp HERNANDEZ and had the opportunity to ask questions and assume patient care.
[2019-07-17] MEDS: insulin glargine (Lantus) pen - multi-dose SQ SCH (20:17)
[2019-07-18] VITALS (22 sets, daily range): BP systolic 108–136; BP diastolic 51–66
[2019-07-18] MEDS: mineral oil/petrolatum ophthal oint EACHEYE SCH ×4 (02:38→20:13)
[2019-07-18] MEDS: hydrocortisone sod succ/PF 100mg/2ml inj. IV SCH ×2 (02:38→07:51)
[2019-07-18] MEDS: VANCOMYCIN 750MG IV in NS 250 ML IV SCH ×3 (02:38→19:41)
[2019-07-18] MEDS: insulin regular, human vial - multi-dose SQ PRN ×3 (02:44→20:10)
[2019-07-18 03:26] LABS: BASOPHILS % (AUTO) 0.1 % (0-1); EOSINOPHILS % (AUTO) 0.3 % (0-6); HEMATOCRIT 31.4 % (42.0-52.0); HEMOGLOBIN 10.2 g/dl (14.0-17.9); LYMPHOCYTES # (AUTO) 1.6 X10'3 (1.1-4.8); LYMPHOCYTES % (AUTO) 11.6 % (21-51); MEAN CORPUSCULAR HEMOGLOBIN 29.5 PG (27.0-31.0); MEAN CORPUSCULAR HGB CONC 32.6 g/dL (33.0-36.5); MEAN CORPUSCULAR VOLUME 90.7 FL (78-98); MEAN PLATELET VOLUME 8.5 FL (7.4-10.4); MONOCYTES # (AUTO) 0.9 X10'3 (0-0.9); MONOCYTES % (AUTO) 6.4 % (2-12); NEUTROPHILS # (AUTO) 11.3 X10'3 (1.8-7.7); NEUTROPHILS % (AUTO) 81.6 % (42-75); PLATELET COUNT 211 X10'3 (140-440); RED BLOOD COUNT 3.46 X10'6 (4.70-6.10); WHITE BLOOD COUNT 13.8 X10'3 (4.5-11.0)
[2019-07-18 03:44] LABS: ALANINE AMINOTRANSFERASE 370 U/L (12-78); ALBUMIN 1.4 G/DL (3.4-5.0); ALBUMIN/GLOBULIN RATIO 0.4 (1.1-1.5); ALKALINE PHOSPHATASE 129 IU/L (46-116); ANION GAP 7 (8-16); ASPARTATE AMINO TRANSFERASE 142 U/L (10-37); BILIRUBIN,TOTAL 0.4 MG/DL (0.1-1.0); BLOOD UREA NITROGEN 76 MG/DL (7-18); BUN/CREATININE RATIO 54.7 (5.4-32.0); CALCIUM 7.7 MG/DL (8.5-10.1); CHLORIDE 126 MMOL/L (99-107); CREATININE 1.39 MG/DL (0.60-1.10); GLUCOSE 197 MG/DL (70-104); MAGNESIUM 3.2 MG/DL (1.5-2.4); PHOSPHORUS 3.7 MG/DL (2.3-4.5); TOTAL CARBON DIOXIDE 24.7 MMOL/L (24-32); eGFR 53 ML/MIN
[2019-07-18 03:45] LABS: ABG BASE EXCESS -2.7 mmol/L (-2.0-3.0); ABG HCO3 22.9 mmol/L (22.0-26.0); ABG OXYGEN SATURATION 95.2 % (95-98); ABG PCO2 (T) 41.5 mmHg (35.0-45.0); ABG PH (T) 7.356 (7.350-7.450); ABG PO2 (T) 78.3 mmHg (83-108); FCOHb 0.3 % (0.5-1.5); FO2Hb 94.9 % (94-100); MINUTE VOLUME 14 L/min; PATIENT TEMPERATURE 36.2; PEEP 10 cm H2O; RESPIRATORY RATE 24 b/min; RESPIRATORY RATE (OBSERVED) 24 b/min; TIDAL VOLUME 525 mL
[2019-07-18 03:48] LABS: SODIUM 158 MMOL/L (135-145)
[2019-07-18] MEDS: FENTANYL-0.9 % NACL/PF 100 ML IV PRN (04:29)
--- NOTE | 2019-07-18 04:36 | NUR ---
i called November to let her know about the critical NA of 158. she gave orders to DC NS and increase free water to 250ml. she placed orders. continue to monitor.
--- NOTE | 2019-07-18 04:37 | NUR ---
sedation has been turned down throughout the shift. pt has started to awake and open eyes. he is trying to track, but not completely able to yet. he is not moving extremities or obeying commands yet. he is biting on ETT tube to the point that his lip and tongue are bleeding. he is moving lips and head seeming to try to remove ETT tube. sedation increased again slightly at this time.
--- NOTE | 2019-07-18 06:23 | NUR ---
Problems reprioritized. Patient report given, questions answered & plan of care reviewed with Neymar HERNANDEZ.
[2019-07-18] MEDS: heparin, porcine 5000 units/ml vial SQ SCH ×2 (07:49→20:06)
[2019-07-18] MEDS: famotidine/PF 10 mg/ml inj IV SCH ×2 (07:49→20:06)
[2019-07-18] MEDS: lactobacillus rhamnosus 10,000 MMU CELLS/CAPSULE PO SCH ×2 (07:49→20:06)
[2019-07-18] MEDS: nicotine 14mg patch - 24hr TD SCH (07:50)
[2019-07-18] MEDS: K and/or MAG REPLACEMENT MC SCH (08:00)
--- NOTE | 2019-07-18 17:30 | NUR ---
Back from MRI; hooked up to monitors and tube feed resumed. Patient stable at this time
--- NOTE | 2019-07-18 19:24 | NUR ---
Awaiting Chest Xray Report for PICC line placement confirmation. RN notified of need for report read before use and states understanding.
[2019-07-18] MEDS: insulin glargine (Lantus) pen - multi-dose SQ SCH (20:12)
--- NOTE | 2019-07-18 22:37 | NUR ---
SEDATION WAS OFF AT BEGINNING OF SHIFT. PATIENT AWAKE AND FOLLOWS COMMANDS; ASKED TO OPEN MOUTH FOR ORAL CARE AND HE DID. HOWEVER, PATIENT IS UNABLE TO MOVE ANY EXTREMITIES AND HAS NO RESPONSE TO PAIN ON NAIL BEDS. ALSO NO COUGH WITH ET TUBE SUCTIONING. PATIENT MOVES HEAD AND CONSTANTLY CHEWS ON ET TUBE. SEDATION RE-INITIATED
[2019-07-18] MEDS: midazolam 100mg in NS 100ml 100 ML IV PRN (23:26)
[2019-07-19] VITALS (20 sets, daily range): BP systolic 111–152; BP diastolic 54–68
[2019-07-19] MEDS: insulin regular, human vial - multi-dose SQ PRN ×4 (02:09→20:43)
[2019-07-19] MEDS: mineral oil/petrolatum ophthal oint EACHEYE SCH ×4 (02:10→19:29)
[2019-07-19] MEDS: VANCOMYCIN 750MG IV in NS 250 ML IV SCH ×3 (02:49→19:29)
[2019-07-19 03:06] LABS: BASOPHILS % (AUTO) 0.1 % (0-1); EOSINOPHILS # (AUTO) 0.1 X10'3 (0-0.9); HEMATOCRIT 32.2 % (42.0-52.0); HEMOGLOBIN 10.3 g/dl (14.0-17.9); LYMPHOCYTES # (AUTO) 1.6 X10'3 (1.1-4.8); LYMPHOCYTES % (AUTO) 11.4 % (21-51); MEAN CORPUSCULAR HEMOGLOBIN 29.1 PG (27.0-31.0); MEAN CORPUSCULAR HGB CONC 32.1 g/dL (33.0-36.5); MEAN CORPUSCULAR VOLUME 90.7 FL (78-98); MEAN PLATELET VOLUME 8.3 FL (7.4-10.4); MONOCYTES # (AUTO) 0.7 X10'3 (0-0.9); MONOCYTES % (AUTO) 5.4 % (2-12); NEUTROPHILS # (AUTO) 11.3 X10'3 (1.8-7.7); NEUTROPHILS % (AUTO) 82.1 % (42-75); PLATELET COUNT 214 X10'3 (140-440); RED BLOOD COUNT 3.55 X10'6 (4.70-6.10); RED CELL DISTRIBUTION WIDTH 15.6 % (11.5-14.5); WHITE BLOOD COUNT 13.8 X10'3 (4.5-11.0)
[2019-07-19 03:18] LABS: ALANINE AMINOTRANSFERASE 382 U/L (12-78); ALBUMIN 1.4 G/DL (3.4-5.0); ALBUMIN/GLOBULIN RATIO 0.4 (1.1-1.5); ALKALINE PHOSPHATASE 130 IU/L (46-116); ANION GAP 2 (8-16); ASPARTATE AMINO TRANSFERASE 118 U/L (10-37); BILIRUBIN,TOTAL 0.4 MG/DL (0.1-1.0); BLOOD UREA NITROGEN 76 MG/DL (7-18); BUN/CREATININE RATIO 59.8 (5.4-32.0); CHLORIDE 127 MMOL/L (99-107); CREATININE 1.27 MG/DL (0.60-1.10); GLUCOSE 161 MG/DL (70-104); MAGNESIUM 3.1 MG/DL (1.5-2.4); PHOSPHORUS 4.1 MG/DL (2.3-4.5); TOTAL CARBON DIOXIDE 27.2 MMOL/L (24-32); TOTAL PROTEIN 5.1 G/DL (6.4-8.2); eGFR 59 ML/MIN
[2019-07-19 03:24] LABS: SODIUM 156 MMOL/L (135-145)
[2019-07-19 03:31] LABS: ABG BASE EXCESS -0.4 mmol/L (-2.0-3.0); ABG HCO3 24.7 mmol/L (22.0-26.0); ABG OXYGEN SATURATION 94.4 % (95-98); ABG PCO2 (T) 42.5 mmHg (35.0-45.0); ABG PH (T) 7.382 (7.350-7.450); ABG PO2 (T) 75.6 mmHg (83-108); FCOHb 0.3 % (0.5-1.5); FMetHb 0.3 % (0.3-1.12); FO2Hb 93.8 % (94-100); MINUTE VOLUME 13 L/min; PATIENT TEMPERATURE 36.9; PEEP 5 cm H2O; RESPIRATORY RATE 24 b/min; RESPIRATORY RATE (OBSERVED) 24 b/min; TIDAL VOLUME 500 mL; TOTAL HEMOGLOBIN 11.1 G/dl (14.0-17.9)
[2019-07-19] MEDS: K and/or MAG REPLACEMENT MC SCH (08:00)
[2019-07-19] MEDS: methylnaltrexone br 12mg/0.6ml inj***SubQ only SQ SCH (08:21)
[2019-07-19] MEDS: famotidine/PF 10 mg/ml inj IV SCH ×2 (08:22→19:29)
[2019-07-19] MEDS: lactobacillus rhamnosus 10,000 MMU CELLS/CAPSULE PO SCH ×2 (08:22→19:30)
[2019-07-19] MEDS: heparin, porcine 5000 units/ml vial SQ SCH ×3 (08:22→20:40)
[2019-07-19] MEDS: nicotine 14mg patch - 24hr TD SCH (11:53)
--- NOTE | 2019-07-19 12:15 | NUR ---
Pt still very bradycardiac with minimal stimulation. Called Rose AYALA) and explained the situation to her in a detail. Rose said she will get cardiology involved.
[2019-07-19] MEDS ORDERED: DOPamine 400mg/D5W 250ml 250 ML IV SCH (13:05)
[2019-07-19] MEDS: DOPamine 400mg/D5W 250ml 250 ML IV SCH (13:27)
--- NOTE | 2019-07-19 17:59 | NUR ---
[place] [id number]
--- NOTE | 2019-07-19 18:00 | NUR ---
Pt off the unit for MRI at 1745, accompanied with Charge nurse (Rere) and Tripp (DAVID) and RT.
--- NOTE | 2019-07-19 18:30 | NUR ---
Patient in room ICU 2044. I have received report from DAVID STEINER and had the opportunity to ask questions and assume patient care. Patient currently off the floor at [facility].
--- NOTE | 2019-07-19 18:52 | NUR ---
Patient back from MRI in stable condition. Patient tolerated procedure and transport well. Placed back on monitor and settled in bed by night cleaner.
--- NOTE | 2019-07-19 19:00 | NUR ---
Patient back from MRI, transferred back to bed and connected to ICU monitors. Assessed patient. Patient not able to move bilateral upper extremities or bilateral lower extremities. Patient currently chewing on ETT tube but unable to move head. Patient mouthing the words "help me". When asked to blink once for yes and twice for no, patient is able to follow commands. Will continue to monitor closely.
[2019-07-19] MEDS ORDERED: gadopentetate dimeglumine 5 mmol/10ml vial IV ONE (19:44)
[2019-07-19] MEDS: insulin glargine (Lantus) pen - multi-dose SQ SCH (20:45)
--- NOTE | 2019-07-19 21:00 | NUR ---
Received Critical MRI results from Dr Madrigal. Notified November Maria R and Dr Wright.
[2019-07-20] VITALS (12 sets, daily range): BP systolic 126–145; BP diastolic 55–69
[2019-07-20] MEDS: DOPamine 400mg/D5W 250ml 250 ML IV SCH ×2 (00:15→08:05)
[2019-07-20] MEDS: mineral oil/petrolatum ophthal oint EACHEYE SCH ×2 (02:40→08:50)
[2019-07-20] MEDS: VANCOMYCIN 750MG IV in NS 250 ML IV SCH (02:40)
[2019-07-20] MEDS: insulin regular, human vial - multi-dose SQ PRN ×2 (02:42→09:15)
[2019-07-20 02:45] LABS: BASOPHILS # (AUTO) 0.2 X10'3 (0-0.2); EOSINOPHILS # (AUTO) 0.1 X10'3 (0-0.9); EOSINOPHILS % (AUTO) 0.6 % (0-6); HEMATOCRIT 32.2 % (42.0-52.0); HEMOGLOBIN 10.3 g/dl (14.0-17.9); LYMPHOCYTES # (AUTO) 1.7 X10'3 (1.1-4.8); LYMPHOCYTES % (AUTO) 9.7 % (21-51); MEAN CORPUSCULAR HEMOGLOBIN 29.5 PG (27.0-31.0); MEAN CORPUSCULAR HGB CONC 32.1 g/dL (33.0-36.5); MEAN CORPUSCULAR VOLUME 91.9 FL (78-98); MONOCYTES # (AUTO) 1.1 X10'3 (0-0.9); MONOCYTES % (AUTO) 6.2 % (2-12); NEUTROPHILS # (AUTO) 14.7 X10'3 (1.8-7.7); NEUTROPHILS % (AUTO) 82.5 % (42-75); PLATELET COUNT 224 X10'3 (140-440); RED BLOOD COUNT 3.51 X10'6 (4.70-6.10); RED CELL DISTRIBUTION WIDTH 15.9 % (11.5-14.5); WHITE BLOOD COUNT 17.8 X10'3 (4.5-11.0)
[2019-07-20 02:57] LABS: ALANINE AMINOTRANSFERASE 391 U/L (12-78); ALBUMIN 1.4 G/DL (3.4-5.0); ALBUMIN/GLOBULIN RATIO 0.3 (1.1-1.5); ALKALINE PHOSPHATASE 166 IU/L (46-116); ANION GAP 6 (8-16); ASPARTATE AMINO TRANSFERASE 104 U/L (10-37); BILIRUBIN,TOTAL 0.8 MG/DL (0.1-1.0); BLOOD UREA NITROGEN 77 MG/DL (7-18); BUN/CREATININE RATIO 53.1 (5.4-32.0); CALCIUM 7.8 MG/DL (8.5-10.1); CHLORIDE 123 MMOL/L (99-107); CREATININE 1.45 MG/DL (0.60-1.10); GLUCOSE 226 MG/DL (70-104); MAGNESIUM 2.9 MG/DL (1.5-2.4); PHOSPHORUS 4.7 MG/DL (2.3-4.5); POTASSIUM 5.3 MMOL/L (3.5-5.1); TOTAL CARBON DIOXIDE 27.4 MMOL/L (24-32); TOTAL PROTEIN 5.6 G/DL (6.4-8.2); eGFR 51 ML/MIN
[2019-07-20 03:00] LABS: SODIUM 156 MMOL/L (135-145)
--- NOTE | 2019-07-20 03:00 | NUR ---
Patient continues to bite down on ETT tube and has bit tongue.
[2019-07-20 03:21] LABS: ABG BASE EXCESS 0.5 mmol/L (-2.0-3.0); ABG HCO3 25.7 mmol/L (22.0-26.0); ABG OXYGEN SATURATION 94.1 % (95-98); ABG PCO2 (T) 45.4 mmHg (35.0-45.0); ABG PH (T) 7.375 (7.350-7.450); ABG PO2 (T) 77.9 mmHg (83-108); FCOHb 0.3 % (0.5-1.5); FO2Hb 93.8 % (94-100); MINUTE VOLUME 14 L/min; PATIENT TEMPERATURE 37.9; PEEP 5 cm H2O; RESPIRATORY RATE 24 b/min; RESPIRATORY RATE (OBSERVED) 24 b/min; TIDAL VOLUME 500 mL; TOTAL HEMOGLOBIN 11.5 G/dl (14.0-17.9)
[2019-07-20 03:37] LABS: BANDS% (MANUAL) 5 % (0-10); EOSINOPHILS % (MANUAL) 1 % (0-6); LYMPHOCYTES % (MANUAL) 7 % (21-51); MONOCYTES % (MANUAL) 9 % (2-12); NEUTROPHILS % (MANUAL) 75 % (42-75); TOTAL CELLS COUNTED 100
[2019-07-20 03:38] LABS: METAMYLEOCYTES% (MANUAL) 2 % (0-0); PLATELET ESTIMATE NORMAL; REACTIVE LYMPHOCYTES % 1 % (0-0)
--- NOTE | 2019-07-20 06:30 | NUR ---
Patient in room ICU 2044. I have received report from DAVID Nuñez and had the opportunity to ask questions and assume patient care.
--- NOTE | 2019-07-20 07:45 | NUR ---
Ventricular pacer checked by lowering rate to 45, pts remained in his own sinus rhyme. 3 sec pulsed noted on bedside EKG at 0735. Dr. Wright and Rose Rudd notified.
[2019-07-20] MEDS: ipratropium/albuterol 3ml nebule NEB PRN (07:47)
[2019-07-20] MEDS: heparin, porcine 5000 units/ml vial SQ SCH (08:51)
[2019-07-20] MEDS: famotidine/PF 10 mg/ml inj IV SCH (08:51)
[2019-07-20] MEDS: nicotine 14mg patch - 24hr TD SCH (08:53)
[2019-07-20] MEDS: lactobacillus rhamnosus 10,000 MMU CELLS/CAPSULE PO SCH (08:53)
--- NOTE | 2019-07-20 09:49 | NUR ---
@0700 on assessment noted that pt has sensation only to head and upper neck. Pt has no sensation below neck. Pt communicating by blinking rapidly for yes or blinking long for no. Pt appropriately answering questions yes or no by blinking. Pt blinking yes when asked if was able to feel alcohol swab to forehead, ears, chin, cheeks, and neck. Pt not aware of sensation on arms with alcohol swab. When asked if he can feel any pressure or pain on arms or legs, or abdomen pt responded with long blink as no. When asked if pt has pain pt responded affirmatively by blinking rapidly. When asked if pain was in neck pt also answered affirmatively by blinking rapidly. Pt eye tracking well, pupils PERRL. Eriberto Saunders RN
--- NOTE | 2019-07-20 09:52 | NUR ---
2263 spoke with Laure from [facility] for ICU transfer to [facility]
--- NOTE | 2019-07-20 10:33 | NUR ---
Report called to receiving nurse Alea HERNANDEZ from [facility]. Transferred via [facility] ambulance. Special Issues communicated to receiving nurse.
--- NOTE | 2019-07-20 11:32 | NUR ---
Pt on [facility] gurney xfr out now.
== END 2019-07-20 12:23 | disposition short-term general hospital (02) | DRG 720 ==
LOC: ER 07:08 → SUR 3N 17:31 → CICU 2S 07-12 00:30 → ICU 2S 07-14 11:15 → CMPBEDREQ 07-14 21:12
PROVIDERS: ADMIT Internal Medicine; ATTEND Internal Medicine Critical Care Medicine
PROC: B3251ZZ Computerized Tomography (CT Scan) of Bilateral Common Carotid Arteries using Low Osmolar Contrast (ICD-10-PCS; 2019-07-11)
PROC: B3201ZZ Computerized Tomography (CT Scan) of Thoracic Aorta using Low Osmolar Contrast (ICD-10-PCS; 2019-07-11)
PROC: B4201ZZ Computerized Tomography (CT Scan) of Abdominal Aorta using Low Osmolar Contrast (ICD-10-PCS; 2019-07-11)
PROC: B4241ZZ Computerized Tomography (CT Scan) of Superior Mesenteric Artery using Low Osmolar Contrast (ICD-10-PCS; 2019-07-11)
PROC: B4281ZZ Computerized Tomography (CT Scan) of Bilateral Renal Arteries using Low Osmolar Contrast (ICD-10-PCS; 2019-07-11)
PROC: B42C1ZZ Computerized Tomography (CT Scan) of Pelvic Arteries using Low Osmolar Contrast (ICD-10-PCS; 2019-07-11)
PROC: B42H1ZZ Computerized Tomography (CT Scan) of Bilateral Lower Extremity Arteries using Low Osmolar Contrast (ICD-10-PCS; 2019-07-11)
PROC: B4211ZZ Computerized Tomography (CT Scan) of Celiac Artery using Low Osmolar Contrast (ICD-10-PCS; 2019-07-11)
PROC: 0BH17EZ Insertion of Endotracheal Airway into Trachea, Via Natural or Artificial Opening (ICD-10-PCS; 2019-07-12)
PROC: 02H633Z Insertion of Infusion Device into Right Atrium, Percutaneous Approach (ICD-10-PCS; 2019-07-12)
PROC: 04HY32Z Insertion of Monitoring Device into Lower Artery, Percutaneous Approach (ICD-10-PCS; 2019-07-12)
PROC: 4A133B1 Monitoring of Arterial Pressure, Peripheral, Percutaneous Approach (ICD-10-PCS; 2019-07-12)
PROC: 4A133J1 Monitoring of Arterial Pulse, Peripheral, Percutaneous Approach (ICD-10-PCS; 2019-07-12)
PROC: 0BH17EZ Insertion of Endotracheal Airway into Trachea, Via Natural or Artificial Opening (ICD-10-PCS; principal; 2019-07-14)
PROC: 5A1955Z Respiratory Ventilation, Greater than 96 Consecutive Hours (ICD-10-PCS; 2019-07-14)
PROC: 5A1223Z Performance of Cardiac Pacing, Continuous (ICD-10-PCS; 2019-07-16)
PROC: 02HV33Z Insertion of Infusion Device into Superior Vena Cava, Percutaneous Approach (ICD-10-PCS; 2019-07-18)
PROC: 4A02X4A Measurement of Cardiac Electrical Activity, Guidance, External Approach (ICD-10-PCS; 2019-07-18)
PROC: B548ZZA Ultrasonography of Superior Vena Cava, Guidance (ICD-10-PCS; 2019-07-18)
DX: A41.02 Sepsis due to Methicillin resistant Staphylococcus aureus (principal); J96.01 Acute respiratory failure with hypoxia; R65.21 Severe sepsis with septic shock; N17.9 Acute kidney failure, unspecified; M48.02 Spinal stenosis, cervical region; G95.20 Unspecified cord compression; F17.210 Nicotine dependence, cigarettes, uncomplicated; G89.29 Other chronic pain; M46.26 Osteomyelitis of vertebra, lumbar region; F15.10 Other stimulant abuse, uncomplicated; F11.10 Opioid abuse, uncomplicated; B95.8 Unspecified staphylococcus as the cause of diseases classified elsewhere; F12.10 Cannabis abuse, uncomplicated; M46.46 Discitis, unspecified, lumbar region; Z88.6 Allergy status to analgesic agent; Z79.899 Other long term (current) drug therapy
CPT/HCPCS: 36415; 36569; 36600; 70450; 70544; 70551; 71045; 71275; 72141; 72146; 72148; 72156; 73706; 74018; 74174; 76937; 80053; 80074; 80202; 80305; 81001; 82550; 82570; 82803; 82810; 82948; 83605; 83735; 83880; 84100; 84134; 84145; 84300; 84484; 85018; 85025; 85610; 85730; 86140; 86703; 87040; 87070; 87077; 87081; 87186; 87207; 90732; 92950; 93005; 93306; 93312; 94002; 94003; 94640; 94760; 96365; 96368; 96375; 96376; 97110; 97161; 97530; 99285; A9579; G0378; J0171; J0461; J0690; J0696; J1170; J1250; J1265; J1644; J1720; J1815; J2212; J2250; J2270; J2543; J2704; J3010; J3370; J3490; J7030; J7050; Q9967